=== PATIENT | female | born 1955 | race Caucasian/White ===

== ENCOUNTER 2021-12-13 21:18 | Observation (INO) ==
[2021-12-13] MEDS ORDERED: Ipratropium/Albuterol Neb 3 ML IH ONE ×3 (21:57→23:07)
[2021-12-13] MEDS ORDERED: 0.9 % Sodium Chloride 500 ML IVC ONE (21:57)
[2021-12-13] MEDS ORDERED: methylPREDNISolone 125 MG/2 ML VIAL IVP ONE (21:57)
[2021-12-13 22:23] LABS: Basophils % 0.3 %; Eosinophils % 0.3 %; Hematocrit 37.7 % (35.3-44.9); Hemoglobin 12.4 g/dL (11.5-15.4); Immature Granulocytes % 0.3 % (0-4); Lymphocytes # 0.5 K/mcL (0.6-4.6); Lymphocytes % 5.2 %; Mean Corpuscular HGB Conc 32.9 g/dL (31.6-35.5); Mean Corpuscular Hemoglobin 27.4 pg (28.0-33.3); Mean Corpuscular Volume 83.2 fL (83.0-100.0); Mean Platelet Volume 9.8 fL (9.4-12.4); Monocytes # 0.7 K/mcL (0.0-1.3); Monocytes % 7.4 %; Neutrophils # 8.4 K/mcL (1.6-8.9); Platelet Count 203 K/mcL (140-400); Red Blood Count 4.53 M/mcL (3.82-4.97); Red Cell Distribution Width 13.7 % (11.5-14.5); Segmented Neutrophils % 86.5 %; White Blood Count 9.7 K/mcL (4.3-11.1)
[2021-12-13 22:37] LABS: VBG HCO3 24 mEq/L (21-27); VBG PCO2 39 mmHg (41-51); VBG PO2 49 mmHg (25-50)
[2021-12-13 22:40] LABS: Alanine Aminotransferase 15 Units/L (7-52); Albumin 4.6 g/dL (3.5-5.7); Albumin/Globulin Ratio 1.5 (1.1-2.2); Alkaline Phosphatase 75 Units/L (34-104); Aspartate Amino Transferase 16 Units/L (13-39); BUN/Creatinine Ratio 12 (6-26); Bilirubin,Direct 0.2 mg/dL (0.0-0.2); Bilirubin,Indirect 0.5 mg/dL (0.0-1.0); Bilirubin,Total 0.7 mg/dL (0.3-1.0); Blood Urea Nitrogen 12 mg/dL (8-23); Calcium 9.4 mg/dL (8.6-10.3); Carbon Dioxide 26 mEq/L (23-29); Chloride 97 mEq/L (98-107); Globulin 3.1 g/dL (2.4-3.5); Glucose 112 mg/dL (70-105); Osmolality,Calculated 277 (280-300); Potassium 3.7 mEq/L (3.5-5.1); Sodium 133 mEq/L (136-145); Total Protein 7.7 g/dL (6.4-8.9); eGFR For African Americans > 60 (> 60); eGFR For Non-African Americans 56 (> 60)
[2021-12-13 22:42] LABS: Troponin I < 0.03 ng/mL (< 0.04)
[2021-12-13] MEDS ORDERED: 0.9 % Sodium Chloride 1,000 ML IVC ONE (23:14)
[2021-12-13] MEDS ORDERED: Azithromycin 500 MG in D5% in Water 250 ML IVPB ONE (23:14)
[2021-12-13] MEDS ORDERED: Naloxone 0.4 MG/ML INJ IVP PRN (23:54)
[2021-12-13] MEDS ORDERED: Ondansetron ODT 4 MG TAB.RAPDIS SL PRN (23:54)
[2021-12-14] MEDS: Acetaminophen 325 MG TABLET PO PRN ×3 (00:49→20:15)
[2021-12-14 02:24] LABS: Adenovirus Not Detected (Not Detect); Coronavirus 229E Not Detected (Not Detect); Coronavirus HKU1 Not Detected (Not Detect); Coronavirus NL63 Not Detected (Not Detect); Coronavirus OC43 Not Detected (Not Detect); Human Metapneumovirus Not Detected (Not Detect); Human Rhinovirus/Enterovirus Not Detected (Not Detect); SARS-CoV-2 Not Detected (Not Detect)
[2021-12-14 02:27] LABS: Bordetella Pertussis Not Detected (Not Detect); Chlamydophila pneumoniae Not Detected (Not Detect); Influenza A Subtype 2009 H1 Not Detected (Not Detect); Influenza B Not Detected (Not Detect); Mycoplasma pneumoniae Not Detected (Not Detect); Parainfluenza Virus 1 Not Detected (Not Detect); Parainfluenza Virus 2 Not Detected (Not Detect); Parainfluenza Virus 3 Not Detected (Not Detect); Parainfluenza Virus 4 Not Detected (Not Detect); Respiratory Syncytial Virus Not Detected (Not Detect)
[2021-12-14] MEDS: Ipratropium/Albuterol Neb 3 ML IH SCH ×5 (03:27→21:38)
[2021-12-14] MEDS: methylPREDNISolone 125 MG/2 ML VIAL IVP SCH ×5 (03:41→22:11)
[2021-12-14] MEDS: *HR* Enoxaparin 40 MG/0.4 ML SYRINGE SQ SCH (06:33)
[2021-12-14] MEDS: (Ezetimibe [Zetia] 10 MG Tablet) PO SCH (07:16)
[2021-12-14] MEDS: Tiotropium 10 INH DOSE IH SCH (07:50)
[2021-12-14] MEDS: Budesonide/Formoterol 80/4.5 1 PUFF INH IH SCH ×2 (07:50→21:39)
[2021-12-14] MEDS: Metoprolol XL (24 HR) Succ 50 MG TAB.ER.24H PO SCH (08:17)
[2021-12-14] MEDS: gemfibroziL 600 MG TABLET PO SCH (08:17)
[2021-12-14] MEDS: Famotidine 20 MG TABLET PO SCH ×2 (08:18→20:15)
[2021-12-14] MEDS: Azithromycin 500 MG in D5% in Water 250 ML IVPB SCH (08:19)
[2021-12-14] MEDS ORDERED: Budesonide/Formoterol 160/4.5 1 PUFF INH IH SCH (10:00)
[2021-12-15] MEDS: Ipratropium/Albuterol Neb 3 ML IH SCH ×2 (04:50→09:33)
[2021-12-15] MEDS: methylPREDNISolone 125 MG/2 ML VIAL IVP SCH (06:09)
[2021-12-15] MEDS: *HR* Enoxaparin 40 MG/0.4 ML SYRINGE SQ SCH (06:10)
[2021-12-15] MEDS: (Ezetimibe [Zetia] 10 MG Tablet) PO SCH (08:13)
[2021-12-15] MEDS: Famotidine 20 MG TABLET PO SCH (08:16)
[2021-12-15] MEDS: Azithromycin 500 MG in D5% in Water 250 ML IVPB SCH (08:16)
[2021-12-15] MEDS: Metoprolol XL (24 HR) Succ 50 MG TAB.ER.24H PO SCH (08:17)
[2021-12-15] MEDS: gemfibroziL 600 MG TABLET PO SCH (08:17)
[2021-12-15] MEDS: Budesonide/Formoterol 80/4.5 1 PUFF INH IH SCH (09:31)
[2021-12-15] MEDS: Tiotropium 10 INH DOSE IH SCH (09:32)
[2021-12-15 11:50] VITALS: BP 151/82; PULSE 111; TEMP 98.4
[2021-12-15] MEDS ORDERED: DilTIAZem CD (24hr) 120 MG CAP.ER.24H PO SCH (12:00)
[2021-12-15 13:31] VITALS: RESP 97; O2SAT 1
[2021-12-15] MEDS ORDERED: MethylPREDNISolone 40 MG/ML VIAL IVP SCH (16:00)
== END 2021-12-15 15:13 | disposition home or self-care (01) ==
LOC: EMEROOGRE 21:18 → INPGRE 21:18
PROVIDERS: ADMIT Internal Medicine; ATTEND Internal Medicine